=== PATIENT | female | born 1990 | race Caucasian/White ===

== ENCOUNTER 2023-01-20 07:41 | Emergency (ER) | payer OTHER, SELFPAY ==
[2023-01-20] VITALS (10 sets, daily range): BP systolic 106–144; BP diastolic 65–91; PULSE 96–146; RESP 13–33; TEMP 37; O2SAT 98–100; BMI 21.4
--- NOTE | 2023-01-20 07:43 | ED.GENADULT ---
HPI - General Adult General Chief complaint: Arrhythmia/Palpitations Stated complaint: elavated heartrate/shaking/burping/panic attackT-1 Time Seen by Provider: 01/20/23 07:43 History of Present Illness HPI narrative: 32-year-old female nonsmoker without any significant medical history presents with a chief complaint of about 24 hours of feeling panicky and anxious with a racing heart. She states that she started feeling this way yesterday at around noon. She states that she feels a bit lightheaded and foggy, she vomited 1 time and states she has not had anything to eat and very little to drink in at least 24 hours which is not normal for her. She denies any new medications or other dietary change. She denies the use of alcohol or any street drugs. She does take Ozempic and Clenbuterol as part of her weightlifting routine. She denies any other performance enhancing medications or [id number] medications. She denies fever or chills. She states she feels her racing heart and short of breath. She denies pain. She denies abdominal pain, constipation or diarrhea. She denies any dysuria, frequency or urgency. She states her last period was yesterday Related Data Home Medications Medication Instructions Recorded Confirmed alprazolam 0.5 mg tablet 0.5 mg PO PRN PRN Anxiety 01/20/23 01/20/23 semaglutide 0.25 mg or 0.5 mg (2 mg SUBCUT 01/20/23 mg/3 mL) subcutaneous pen injector (Ozempic) Previous Rx's Medication Instructions Recorded lorazepam 0.5 mg tablet 0.5 mg PO TID PRN anxiety #10 tabs 01/20/23 ondansetron 4 mg disintegrating 4 mg PO TID-QID PRN nausea and 01/20/23 tablet vomiting #10 tabs pantoprazole 40 mg tablet,delayed 40 mg PO DAILY #30 tabs 01/20/23 release (Protonix) Allergies Allergy/AdvReac Type Severity Reaction Status Date / Time No Known Allergies Allergy Verified 01/20/23 08:08 Review of Systems Review of Systems Narrative: GENERAL: Denies chills, fatigue, malaise, fever, sweats. HEENT: Denies sinus pain, ear pain, sore throat, difficulty swallowing, dizziness. RESPIRATORY: See HPI CARDIOVASCULAR: See HPI GASTROINTESTINAL: Denies nausea, vomiting, abdominal pain, diarrhea, constipation, melena. : Denies dysuria, frequency, incontinence, hematuria, urinary retention. MUSCULOSKELETAL: denies weakness, joint pain, or bony pain SKIN: Denies rash, skin lesions, or other NEUROLOGIC: See HPI PSYCHIATRIC: See HPI 12 point review of systems is negative except for those stated above Patient History Medical History (Updated 01/20/23 @ 10:23 by Edward Suazo DO) Abnormal Pap smear of cervix Genital warts Vaginal delivery Ovarian cyst Surgical History History of colposcopy Social History Smoking Status: Never smoker Smoking Status: Never smoker Exam Narrative Exam Narrative: GENERAL: [32] year old patient appears stated age. Well-developed patient, in mild distress. Tearful, anxious HEAD: Atraumatic. Normocephalic. EYES: Pupils equal round and reactive. Extraocular motions intact. No scleral icterus. No injection or drainage. ENT: Nose without bleeding, purulent drainage. Throat without erythema, tonsillar hypertrophy or exudate. Airway patent. NECK: Trachea midline. Non tender CARDIOVASCULAR: Tachycardic but regular rhythm without murmurs, gallops, or rubs. RESPIRATORY: Clear to auscultation. Breath sounds equal bilaterally. No wheezes, rales, or rhonchi. GASTROINTESTINAL: Abdomen soft, non-tender, nondistended. EXTREMITIES: No edema or joint tenderness. BACK: Nontender without deformity or crepitance. No flank tenderness. NEURO: AOx3. SKIN: No rash or erythema of visible areas Initial Vital Signs Initial Vital Signs: Vital Signs Temperature 98.6 F 01/20/23 07:45 Pulse Rate 141 H 01/20/23 07:45 Respiratory Rate 28 H 01/20/23 07:45 Blood Pressure 130/91 H 01/20/23 07:45 Pulse Oximetry 99 01/20/23 07:45 Oxygen Delivery Method Room Air 01/20/23 07:45 Course Orders Ordered: Discontinued Medications Sodium Chloride (Normal Saline 0.9%) 1,000 mls @ 1,000 mls/hr IV BOLUS ONE Stop: 01/20/23 08:52 Last Infusion: 01/20/23 09:25 Dose: Infused Documented By: Admin: 01/20/23 08:19 Dose: 1,000 mls/hr Documented By: RB Sodium Chloride (Normal Saline 0.9%) 1,000 mls @ 1,000 mls/hr IV BOLUS ONE Stop: 01/20/23 10:27 Last Infusion: 01/20/23 10:26 Dose: Infused Documented By: Admin: 01/20/23 09:35 Dose: 1,000 mls/hr Documented By: RB Lorazepam (Lorazepam 2 Mg/Ml Inj) 0.5 mg IV NOW ONE Stop: 01/20/23 08:29 Last Admin: 01/20/23 08:38 Dose: 0.5 mg Documented By: RB Lorazepam (Lorazepam 2 Mg/Ml Inj) 0.5 mg IV NOW ONE Stop: 01/20/23 11:14 Last Admin: 01/20/23 11:41 Dose: 0.5 mg Documented By: RL Ondansetron HCl (Ondansetron 4 Mg/2 Ml Inj) 4 mg IV NOW ONE Stop: 01/20/23 08:33 Last Admin: 01/20/23 08:43 Dose: 4 mg Documented By: RB Pantoprazole Sodium (Pantoprazole 40 Mg Vial) 40 mg IV NOW ONE Stop: 01/20/23 08:33 Last Admin: 01/20/23 08:43 Dose: 40 mg Documented By: RB Vital Signs Vital signs: Vital Signs - 8 hr 01/20/23 07:45 01/20/23 07:52 01/20/23 08:00 Temperature 98.6 F Pulse Rate 141 H 146 H 137 H Respiratory Rate 28 H 26 H 33 H Blood Pressure 130/91 H Pulse Oximetry 99 99 100 Oxygen Delivery Method Room Air 01/20/23 08:01 01/20/23 08:01 01/20/23 08:19 Temperature Pulse Rate 134 H 121 H Respiratory Rate 26 H 17 Blood Pressure 134/69 Pulse Oximetry 100 98 Oxygen Delivery Method 01/20/23 08:19 01/20/23 08:30 01/20/23 08:30 Temperature Pulse Rate 105 H Respiratory Rate 16 Blood Pressure 144/86 H 111/71 Pulse Oximetry 99 Oxygen Delivery Method 01/20/23 09:00 01/20/23 09:00 01/20/23 09:30 Temperature Pulse Rate 96 H Respiratory Rate 15 Blood Pressure 106/69 109/66 Pulse Oximetry 100 Oxygen Delivery Method 01/20/23 09:30 Temperature Pulse Rate 109 H Respiratory Rate 19 Blood Pressure Pulse Oximetry 99 Oxygen Delivery Method Medical Decision Making Lab Data 01/20/23 07:55 01/20/23 07:55 Labs: Lab Results 01/20/23 Range/Units 07:55 WBC 6.7 (4.5-11.0) X10^3/uL RBC 4.89 (4.0-5.2) X10^6/uL Hgb 13.9 (12.0-16.0) g/dL Hct 40.2 (36-46) % MCV 82.3 (80-100) fL MCH 28.4 (26-34) PG MCHC 34.5 (30-36) % RDW 12.6 (11.6-14.8) % Plt Count 321 (150-400) X10^3/uL Neut % (Auto) 61.1 (50-75) % Lymph % (Auto) 30.2 (25-40) % [place] % (Auto) 5.0 (3-14) % Eos % (Auto) 2.4 (2-4) % Baso % (Auto) 1.3 (0-2) % Neut # (Auto) 4100 (8501-5449) /uL Lymph # (Auto) 2000 (8042-2789) /uL [place] # (Auto) 300 (0-900) /uL Eos # (Auto) 200 (0-450) /uL Baso # (Auto) 100 (0-100) /uL D-Dimer 364 (<500) ng/ml Sodium 137 (137-145) mmol/L Potassium 3.4 (3.4-5.1) mmol/L Chloride 103 (98-107) mmol/L Carbon Dioxide 25 (22-32) mmol/L BUN 4 L (7-17) mg/dL Creatinine 0.60 (0.52-1.04) mg/dL Estimated GFR > 60 (>60) mL/min BUN/Creatinine Ratio 6.7 (6-22) Glucose 102 H (70-100) mg/dL Calcium 9.5 (8.4-10.2) mg/dL Magnesium 1.9 (1.6-2.3) mg/dL Total Bilirubin 0.7 (0.2-1.3) mg/dL AST 37 H (14-36) IU/L ALT 28 (<35) IU/L Alkaline Phosphatase 36 L (38-126) U/L NT-Pro-B Natriuret Pep 72 (<125) pg/mL Total Protein 7.8 (6.3-8.2) g/dL Albumin 4.9 (3.5-5.0) g/dL Globulin 2.9 (1.7-4.1) g/dL Albumin/Globulin Ratio 1.7 (1.0-2.8) Point of Care Testing Test Results Negative Urine Dip Bedside Urine Glucose Negative Bedside Urine Bilirubin - Negative Bedside Urine Ketone - Negative Urine Specific [place] 1.005 Bedside Urine Occult Blood - Negative Bedside Urine pH 6.5 Bedside Urine Protein - Negative Bedside Urine Urobilinogen - Negative Bedside Urine Nitrite - Negative Bedside Urine Leukocytes - Negative Esterase Point of care testing: Point of Care Testing Test Results Negative Urine Dip Bedside Urine Glucose Negative Bedside Urine Bilirubin - Negative Bedside Urine Ketone - Negative Urine Specific [place] 1.005 Bedside Urine Occult Blood - Negative Bedside Urine pH 6.5 Bedside Urine Protein - Negative Bedside Urine Urobilinogen - Negative Bedside Urine Nitrite - Negative Bedside Urine Leukocytes - Negative Esterase ECG Data Interpretation: 0806] EKG is sinus tachycardia with regular rhythm and rate [136 ] and free of any signs of ischemia or ectopy. No ST segmental elevation or depression. No T wave inversions MDM Narrative Medical decision making narrative: CC: 32-year-old female with rapid heart rate, anxious, panic attack Complicating co-morbidities: Prior anxious response, use of clenbuterol Data collected from: Patient Medical records reviewed: Prior notes reviewed in our EMR Differential considered, but not limited to: Dehydration versus medication reaction versus pulmonary embolism versus other Exam documented above, pertinent findings include: Anxious, tearful, heart rate tachycardic in the 130s but regular, lungs clear, abdomen soft Lab Test results independently reviewed as above. Pertinent findings: No leukocytosis or left shift, no signs of anemia, D-dimer well below cutoff, primary electrolytes and glucose within normal limits, urine absent of signs of infection or Consults: LEDGER CLERK has seen and evaluated patient. Agrees with [facility] for NH. Given contact info for mental health. Encouraged to follow with PCP Independently reviewed EKG as above Treatments: Zofran, fluids, Ativan, Protonix Re-evaluations: Patient feeling much better, less anxious, heart rate improved into the 90s, tolerating orals Discussion: Patient feeling anxious with rapid heart rate, multiple diagnoses considered as noted above. Her history and physical exam are reassuring and it would seem most likely that this is a combination of factors including some undesirable side effects of medications, dehydration, poor diet and anxious response. Electrolytes are all within normal limits, she feels great improvement after above-stated therapies. D-dimer well below age corrected cutoff. Patient has been seen and evaluated by it LEDGER CLERK Disposition: see below, along with detailed discharge instructions that have been reviewed with patient as well as indications for ED re-evaluation and additional outpatient follow up Discharge Plan Departure Patient Disposition: Home Clinical Impression: Heart palpitations, Anxiety Instructions: DI for Anxiety -- Adult, DI for Arrhythmias Activity Restrictions/Additional Instructions: *You have been diagnosed with [palpitations and anxiety. As we discussed your history and physical exam are reassuring in the lab work and EKG suggest against any significant or life-threatening cause. As we discussed this seems most likely a perfect storm and involve some level of dehydration, not eating for 24 hours, as well as some of your medications that you have been taking.] *What to do: *Please continue to take your regular medications as directed. [x ] New medication prescriptions sent to your pharmacy: [[facility]] [ ] New medication written as a paper prescription [ ] No new medications given *Please follow up with your primary care provider in 2-3 days, call for an appointment. Let them know you were seen in the Emergency Department and that we ask that you be seen in follow up. We will electronically transmit a record of today's note if your PCP is in our system *If you do not have a primary care provider please contact the [facility] Resource line at [phone]. They will ask some questions about your medical history and help get you set up with a doctor in the community. *Return to Emergency Department if you should have any new, worsening or concerning symptoms, such as [fever greater than 101 F, shaking chills, worsening pain, persistent vomiting or other bothersome symptoms] Prescriptions: New lorazepam 0.5 mg tablet 0.5 mg PO TID PRN (Reason: anxiety) Qty: 10 0RF pantoprazole [Protonix] 40 mg tablet,delayed release (DR/EC) 40 mg PO DAILY Qty: 30 0RF ondansetron 4 mg tablet,disintegrating 4 mg PO TID-QID PRN (Reason: nausea and vomiting) Qty: 10 0RF No Action alprazolam 0.5 mg tablet 0.5 mg PO PRN PRN (Reason: Anxiety) Ozempic 0.25 mg or 0.5 mg (2 mg/3 mL) Pen Injector SUBCUT Referrals: Miscellaneous,Doctor, MD [Non-Staff] - Stand Alone Forms: Patient Portal/API, Work Release Note
[2023-01-20 08:07] LABS: Add Manual Diff / Slide Review NO; Basophils Absolute Auto 100 /uL (0-100); Basophils Percent Auto 1.3 % (0-2); Eosinophils Absolute Auto 200 /uL (0-450); Eosinophils Percent Auto 2.4 % (2-4); Hematocrit 40.2 % (36-46); Hemoglobin 13.9 g/dL (12.0-16.0); Lymphocytes Absolute Auto 2000 /uL (1100-4500); Lymphocytes Percent Auto 30.2 % (25-40); Mean Corpuscular HGB Conc 34.5 % (30-36); Mean Corpuscular Hemoglobin 28.4 PG (26-34); Mean Corpuscular Volume 82.3 fL (80-100); Monocytes Absolute Auto 300 /uL (0-900); Neutrophils Absolute Auto 4100 /uL (1500-7000); Neutrophils Percent Auto 61.1 % (50-75); Platelet Count 321 X10^3/uL (150-400); Red Blood Cell Count 4.89 X10^6/uL (4.0-5.2); Red Cell Distribution Width 12.6 % (11.6-14.8); White Blood Cell Count 6.7 X10^3/uL (4.5-11.0)
[2023-01-20] MEDS: SODIUM CHLORIDE 0.9% 1,000 ML 1000 ML IV ×2 (08:19→09:35)
[2023-01-20 08:29] LABS: Alanine Aminotransferase 28 IU/L (<35); Albumin 4.9 g/dL (3.5-5.0); Albumin Globulin Ratio 1.7 (1.0-2.8); Alkaline Phosphatase 36 U/L (38-126); Aspartate Aminotransferase 37 IU/L (14-36); BUN Creatinine Ratio 6.7 (6-22); Bilirubin Total 0.7 mg/dL (0.2-1.3); Blood Urea Nitrogen 4 mg/dL (7-17); Calcium 9.5 mg/dL (8.4-10.2); Carbon Dioxide 25 mmol/L (22-32); Chloride 103 mmol/L (98-107); D Dimer 364 ng/ml (<500); Estimated Glomerular Filt Rate > 60 mL/min (>60); Globulin 2.9 g/dL (1.7-4.1); Glucose 102 mg/dL (70-100); HEMOLYSIS < 15 (0-50); Magnesium 1.9 mg/dL (1.6-2.3); Potassium 3.4 mmol/L (3.4-5.1); Sodium 137 mmol/L (137-145); Total Protein 7.8 g/dL (6.3-8.2)
[2023-01-20 08:37] LABS: NT-proBNP (BNP-Adult 18+) 72 pg/mL (<125)
[2023-01-20] MEDS: LORazepam 2 MG/ML INJ 0.5 MG IV ×2 (08:38→11:41)
[2023-01-20] MEDS: ONDANSETRON 4 MG/2 ML INJ IV (08:43)
[2023-01-20] MEDS: PANTOPRAZOLE 40 MG VIAL IV (08:43)
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
== END 2023-01-20 12:06 | disposition home or self-care (01) ==
PROVIDERS: Emergency Provider Emergency Medicine; PCP Family Medicine
DX: R00.2 Palpitations (principal); F41.9 Anxiety disorder, unspecified
CPT/HCPCS: 36415; 80053; 81003; 81025; 83735; 83880; 85025; 85379; 93005; 96361; 96374; 96375; 96376; 99284; C9113; J2060; J2405

== ENCOUNTER → 2023-05-02 16:15 | Outpatient (CLI) | payer OTHER, SELFPAY | PROVIDERS: PCP Family Medicine; Visit Provider Obstetrics & Gynecology | DX: N89.8 Other specified noninflammatory disorders of vagina (principal) | CPT/HCPCS: 87255 ==

== ENCOUNTER 2024-12-23 11:30 | Emergency (ER) | payer OTHER, SELFPAY ==
[2024-12-23] VITALS (10 sets, daily range): BP systolic 118–160; BP diastolic 63–86; PULSE 105–142; RESP 11–24; TEMP 36.7; O2SAT 99–100; BMI 24.1
--- NOTE | 2024-12-23 11:46 | DI.RAD.S_ITS ---
PROCEDURE: XR CHEST 1V INDICATIONS: Chest Pain TECHNIQUE: One view of the chest was acquired. COMPARISON: [facility], , CHEST 1 VIEW, 01/18/2017, 16:34. FINDINGS: Surgical changes and devices: None. Lungs and pleura: Lungs are clear. No pleural effusions or pneumothorax. Mediastinum: Mediastinal contours appear normal. Heart size is normal. Bones and chest wall: No suspicious bony lesions. Overlying soft tissues appear unremarkable. IMPRESSION: No acute cardiopulmonary abnormality is seen. Dictated by: Chapis Jaime M.D. on 12/23/2024 at 13:12 Approved by: Chapis Jaime M.D. on 12/23/2024 at 13:12
--- NOTE | 2024-12-23 11:46 | EKG_ITS ---
[address] [id number] [address] [address] Test Date: 2024-12-23 Pat Name: Lisa Estrada Department: Room: Gender: Female Furnace Mechanic: CHUCK : 1990 Requested By: Order Number: [id number] Reading MD: Jeff Gunter MD Measurements Intervals [place] Rate: 137 P: 77 NE: 138 QRS: 88 QRSD: 80 T: 60 QT: 282 QTc: 425 Interpretive Statements Sinus tachycardia Electronically Signed On 12-23-2024 15:08:08 PDT by Jeff Gunter MD
[2024-12-23 12:10] LABS: Add Manual Diff / Slide Review NO; Hematocrit 43.0 % (36-46); Hemoglobin 14.7 g/dL (12.0-16.0); Lymphocytes Absolute Auto 1300 /uL (1100-4500); Mean Corpuscular HGB Conc 34.2 % (30-36); Mean Corpuscular Hemoglobin 28.3 PG (26-34); Mean Corpuscular Volume 82.8 fL (80-100); Platelet Count 290 X10^3/uL (150-400)
[2024-12-23] MEDS: ASPIRIN 81 MG CHEW TAB 324 MG PO (12:11)
[2024-12-23 12:17] LABS: INR 1.1 (0.9-1.3); Prothrombin Time 12.9 SECONDS (9.4-12.5)
[2024-12-23 12:19] LABS: PTT Partial Thromboplastin Tim 31 SECONDS (25.1-36.5)
[2024-12-23 12:22] LABS: Alanine Aminotransferase 20 IU/L (<35); Albumin 5.1 g/dL (3.5-5.0); Albumin Globulin Ratio 1.5 (1.0-2.8); Alkaline Phosphatase 47 U/L (38-126); Blood Urea Nitrogen 11 mg/dL (7-17); Calcium 9.2 mg/dL (8.4-10.2); Carbon Dioxide 23 mmol/L (22-32); Chloride 103 mmol/L (98-107); Creatine Kinase 111 U/L (30-135); Estimated Glomerular Filt Rate > 60 mL/min (>60); Globulin 3.4 g/dL (1.7-4.1); Glucose 123 mg/dL (70-99); HEMOLYSIS < 15 (0-50); Lipase 45 U/L (23-300); Magnesium 1.6 mg/dL (1.6-2.3); Potassium 3.9 mmol/L (3.4-5.1); Sodium 138 mmol/L (137-145); Total Protein 8.5 g/dL (6.3-8.2)
[2024-12-23 12:34] LABS: NT-proBNP (BNP-Adult 18+) 68 pg/mL (<125); Troponin I < 0.012 ng/mL (0.01-0.034)
--- NOTE | 2024-12-23 13:25 | ED.ARRPALP ---
HPI - Arrhythmia/Palpitations General Chief Complaint: Arrhythmia/Palpitations Stated Complaint: AFIB Time Seen by Provider: 12/23/24 12:31 Source: patient Mode of arrival: Ambulatory History of Present Illness HPI narrative: Patient is a 34-year-old female without significant past medical history presenting today with palpitations. She reports that she was on a gentle walk when suddenly she started feeling her heart racing. She does have a heart rate of 141. Does not really have shortness of breath. She does report she is currently taking Levaquin for probable pneumonia. She says she had a really bad pneumonia about a year ago she says she has a an ongoing bronchitis and coughs with fitting where she went to her primary care who heard wheezes and crackles all along her left side and prescribed Levaquin. She denies any fever or chills body aches or other symptoms. She feels like the antibiotic is helping. She is starting to feel little bit anxious. It is about the 1 year anniversary of her mother's . 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 HEENT: Head atraumatic,EOMI, pupils reactive, face symmetric, moist mucous membranes CARDIOVASCULAR: Regular tachycardia no murmur RESPIRATORY: Breath sounds equal bilaterally, no wheezes rales or rhonchi. ABDOMEN: Soft, nontender. Normoactive bowel sounds all 4 quadrants. No guarding or rebound. EXTREMITIES: Normal range of motion, no clubbing or edema. Neurovascularly intact NEUROLOGICAL: Alert and oriented x4.Normal gait and speech. Cranial nerves II through XII grossly intact. SKIN: Warm, dry, no laceration, no petechiae, no rashes or lesions. Course Orders Ordered: ED Orders 12/23/24 11:46 XR chest 1V Stat EKG-12 Lead Stat 12/23/24 11:55 Test Urine Stat Urinalysis and Microscopic Stat 12/23/24 12:00 Complete Blood Count AUTO DIFF Stat Comprehensive Metabolic Panel Stat D Dimer Stat Lipase Stat Magnesium Stat NT-proBNP (BNP-Adult 18+) Stat PTT Partial Thromboplastin [place] Stat Prothrombin Time INR Stat TSH [Thyroid Stimulating Hormone] Stat Troponin & CK Cardiac Panel Stat Discontinued Medications Aspirin (Aspirin 81 Mg Chew Tab) 324 mg PO NOW ONE Stop: 12/23/24 11:47 Last Admin: 12/23/24 12:11 Dose: 324 mg Documented By: CHRIS Sodium Chloride (Normal Saline 0.9%) 1,000 mls @ 1,000 mls/hr IV BOLUS ONE Stop: 12/23/24 14:24 Last Infusion: 12/23/24 14:51 Dose: Infused Documented By: Admin: 12/23/24 13:31 Dose: 1,000 mls/hr Documented By: Vital Signs Vital signs: Vital Signs - 8 hr 12/23/24 11:34 12/23/24 12:17 12/23/24 12:20 Temperature 98.1 F Pulse Rate 142 H 113 H Respiratory Rate 16 Blood Pressure 160/79 H 130/76 Pulse Oximetry 99 100 Oxygen Delivery Method Room Air 12/23/24 12:30 12/23/24 13:00 12/23/24 13:14 Temperature Pulse Rate 112 H 105 H Respiratory Rate 11 L 18 Blood Pressure 144/86 H Pulse Oximetry 100 100 Oxygen Delivery Method Room Air 12/23/24 13:14 12/23/24 13:30 12/23/24 13:30 Temperature Pulse Rate 132 H 112 H Respiratory Rate 12 24 Blood Pressure 123/75 Pulse Oximetry 99 99 Oxygen Delivery Method 12/23/24 14:00 12/23/24 14:00 12/23/24 14:30 Temperature Pulse Rate 114 H 107 H Respiratory Rate 20 15 Blood Pressure 128/75 Pulse Oximetry 99 100 Oxygen Delivery Method Room Air 12/23/24 14:30 12/23/24 15:00 12/23/24 15:00 Temperature Pulse Rate 108 H Respiratory Rate 19 Blood Pressure 118/63 127/80 Pulse Oximetry 100 Oxygen Delivery Method MDM - Arrhythmia/Palpitations Lab Data 12/23/24 12:00 12/23/24 12:00 Labs: Lab Results 12/23/24 12/23/24 Range/Units 11:55 12:00 WBC 10.1 (4.5-11.0) X10^3/uL RBC 5.19 (4.0-5.2) X10^6/uL Hgb 14.7 (12.0-16.0) g/dL Hct 43.0 (36-46) % MCV 82.8 (80-100) fL MCH 28.3 (26-34) PG MCHC 34.2 (30-36) % RDW 12.5 (11.6-14.8) % Plt Count 290 (150-400) X10^3/uL Neut % (Auto) 82.8 H (50-75) % Lymph % (Auto) 12.4 L (25-40) % [place] % (Auto) 3.5 (3-14) % Eos % (Auto) 0.6 L (2-4) % Baso % (Auto) 0.7 (0-2) % Neut # (Auto) 8400 H (9863-8972) /uL Lymph # (Auto) 1300 (4380-1714) /uL [place] # (Auto) 400 (0-900) /uL Eos # (Auto) 100 (0-450) /uL Baso # (Auto) 100 (0-100) /uL PT 12.9 H (9.4-12.5) SECONDS INR 1.1 (0.9-1.3) APTT 31 (25.1-36.5) SECONDS D-Dimer < 215 (<500) ng/ml Sodium 138 (137-145) mmol/L Potassium 3.9 (3.4-5.1) mmol/L Chloride 103 (98-107) mmol/L Carbon Dioxide 23 (22-32) mmol/L BUN 11 (7-17) mg/dL Creatinine 0.68 (0.52-1.04) mg/dL Estimated GFR > 60 (>60) mL/min BUN/Creatinine Ratio 16.2 (6-22) Glucose 123 H (70-99) mg/dL Calcium 9.2 (8.4-10.2) mg/dL Magnesium 1.6 (1.6-2.3) mg/dL Total Bilirubin 0.8 (0.2-1.3) mg/dL AST 26 (14-36) IU/L ALT 20 (<35) IU/L Alkaline Phosphatase 47 (38-126) U/L Total Creatine Kinase 111 (30-135) U/L Troponin I < 0.012 (0.01-0.034) ng/mL NT-Pro-B Natriuret Pep 68 (<125) pg/mL Total Protein 8.5 H (6.3-8.2) g/dL Albumin 5.1 H (3.5-5.0) g/dL Globulin 3.4 (1.7-4.1) g/dL Albumin/Globulin Ratio 1.5 (1.0-2.8) Lipase 45 (23-300) U/L TSH 1.70 (0.47-4.68) uIU/mL Urine Color Yellow Urine Appearance Clear Urine pH 6.5 (4.5-8.0) Ur Specific [place] 1.010 (1.000-1.035) Urine Protein Negative (Negative) Urine Glucose (UA) Negative (Negative) g/dL Urine Ketones Negative (NEGATIVE) Urine Occult Blood Trace-lysed (Negative) Urine Nitrate Negative (Negative) Urine Bilirubin Negative (NEGATIVE) Urine Urobilinogen 0.2 (0.2) E.U./dL Ur Leukocyte Esterase Negative (NEGATIVE) Urine RBC 0-1/hpf (0-5/HPF) Urine WBC 0-1/hpf (0-5/HPF) Ur Squamous Epith Cells 0-1 /hpf (0-5/HPF) Urine Bacteria Occasional (0-1) (None) Ur Culture Indicated? Cult not indicated Vol Urine Centrifuged 10ml (spun) Urine Test Negative (Negative) Point of Care Testing Test Results Negative Urine Dip Bedside Urine Glucose Negative Bedside Urine Bilirubin - Negative Bedside Urine Ketone - Negative Urine Specific [place] 1.005 Bedside Urine Occult Blood - Negative Bedside Urine pH 6.0 Bedside Urine Protein - Negative Bedside Urine Urobilinogen - Negative Bedside Urine Nitrite - Negative Bedside Urine Leukocytes - Negative Esterase Imaging Data Chest x-ray: Radiologist's Impresson: INDICATIONS: Chest Pain TECHNIQUE: One view of the chest was acquired. COMPARISON: [facility], CHEST 1 VIEW, 01/18/2017, 16:34. FINDINGS: Surgical changes and devices: None. Lungs and pleura: Lungs are clear. No pleural effusions or pneumothorax. Mediastinum: Mediastinal contours appear normal. Heart size is normal. Bones and chest wall: No suspicious bony lesions. Overlying soft tissues appear unremarkable. IMPRESSION: No acute cardiopulmonary abnormality is seen. Dictated by: Chapis Jaime M.D. on 12/23/2024 at 13:12 ECG Data Attestation: I personally reviewed and interpreted this ECG as follows: Interpretation: Sinus tachycardia rate 137 IA interval 138 QRS [address] changes no T-wave inversions MDM Narrative Medical decision making narrative: Patient has a 34-year-old healthy female presenting today with heart palpitations. Currently on Levaquin for presumed pneumonia. She does have elevated heart rate it is sinus. Blood work has been reviewed no leukocytosis no anemia CMP no electrolyte abnormality D-dimer is less than 215, unlikely to be pulmonary embolism TSH 1.70 Urine negative for and UTI EKGs reviewed she has a sinus rhythm tachycardia no arrhythmia ischemia no PVC Chest x-ray no acute cardiopulmonary process At this time patient appears well nontoxic. She did get up and walk to the bathroom when she came back her heart rate was again in the 140s as she sat down it did slowly come down. At this time recommend further outpatient workup with a Holter monitor. Low suspicion that Levaquin is causing elevated heart rate. Do not suspect pulmonary embolism. Discharge Plan Departure Patient Disposition: Home Clinical Impression: Palpitations Instructions: DI for Palpitations Activity Restrictions/Additional Instructions: *You have been diagnosed with palpitations *What to do: At this time I do recommend a Holter monitor which you and your primary care provider can decide the length of. Also talk about anxiety medication although I would do more workup before starting anxiety medication *Continue to take medications as directed *Follow up with your primary care provider in 2-3 days or call [phone] *Return to ER if you should have increased palpitations dizziness lightheadedness shortness of breath or any new, worsening or concerning symptoms Prescriptions: No Action bupropion HCl [Wellbutrin SR] 150 mg tablet sustained-release 12 hr 150 mg PO DAILY ondansetron 4 mg tablet,disintegrating 4 mg PO TID-QID PRN (Reason: nausea and vomiting) Qty: 10 0RF Referrals: Ondina Mg ARNP [Primary Care Provider, Nursing] Stand Alone Forms: Patient Portal/API
[2024-12-23] MEDS: SODIUM CHLORIDE 0.9% 1,000 ML 1000 ML IV (13:31)
[2024-12-23 14:18] LABS: Thyroid Stimulating Hormone 1.70 uIU/mL (0.47-4.68)
--- NOTE | 2024-12-23 14:50 | PC.NURSE ---
Pt up ambulatory to BR. Steady gait noted.
[2024-12-23 15:52] LABS: Appearance Urine UA CLEAR; Bilirubin Urine UA NEGATIVE (NEGATIVE); Color Urine UA YELLOW; Glucose Urine UA NEGATIVE (Negative); Ketones Urine UA NEGATIVE (NEGATIVE); Leukocyte Esterase Urine UA NEGATIVE (NEGATIVE); Nitrite Urine UA NEGATIVE (Negative); Occult Blood Urine UA TRACE-LYSED (Negative); Protein Urine UA NEGATIVE (Negative); Specific Gravity Urine UA 1.010 (1.000-1.035); Urobilinogen Urine UA 0.2 E.U./dL (0.2)
[2024-12-23 15:53] LABS: pH Urine UA 6.5 (4.5-8.0)
[2024-12-23 15:58] LABS: Culture Indicated Urine Cult Not Indicated
== END 2024-12-23 15:38 | disposition home or self-care (01) ==
PROVIDERS: Emergency Provider Emergency Medicine; PCP Family Medicine
DX: R00.2 Palpitations (principal); R00.0 Tachycardia, unspecified; Z87.01 Personal history of pneumonia (recurrent)
CPT/HCPCS: 36415; 71045; 80053; 81001; 81003; 81025; 82550; 83690; 83735; 83880; 84443; 84484; 85025; 85379; 85610; 85730; 93005; 93010; 96360; 99284